=== PATIENT | female | born 1990 | race Caucasian/White ===

== ENCOUNTER 2020-05-25 03:06 | Inpatient (IN) | payer OTHER ==
[~2020-05-25] VITALS: Ht 177.8 cm; Wt 87.5 kg
--- NOTE | 2020-05-25 07:12 | PR ---
[facility] [address] [facility] [place], [place] [address] Signed Progress Notes IP Datetime Report Generated by CPN: 05/25/2020 07:12 PROGRESS NOTES: [id number] Impression: Normal Progression of Labor Procedures: Artificial ROM Plan: Continue Present Management; Anticipate Vaginal Delivery VITAL SIGNS: [id number] Vital Signs: Reviewed; Within Normal Limits EXAM: [id number] Dilatation: 5.0 Effacement: 90 Station: -2 Contractions: every 2-4 minutes MEMBRANES: [id number] Membranes Status: Ruptured FETUS A: [id number] FHR Baseline: 140 Variability: Moderate 6-25bpm Accelerations: 15X15 Presentation: Vertex FETUS B: [id number] Signing Physician: Viviana Dang MD Copies: ~ *Electronically Signed* 05/25/20711 VIVIANA DANG MD PATIENT NAME: DANNY BARNES PROGRESS NOTE DATE OF : [birth year] PHYSICIAN: VIVIANA DANG MD RPT #: [id number] REPORT IS CONFIDENTIAL AND NOT TO BE RELEASED WITHOUT AUTHORIZATION
--- NOTE | 2020-05-25 09:09 | PR ---
[facility] [address] [facility] [place], [place] [address] Signed Progress Notes IP Datetime Report Generated by CPN: 05/25/2020 09:09 PROGRESS NOTES: [id number] Impression: Normal Progression of Labor Procedures: Artificial ROM Plan: Continue Present Management; Anticipate Vaginal Delivery VITAL SIGNS: [id number] Vital Signs: Reviewed; Within Normal Limits EXAM: [id number] Dilatation: 9.5 Effacement: 95 Station: 1 Contractions: every 2-4 minutes MEMBRANES: [id number] Membranes Status: Ruptured Comments: Comfortable with Epidural, but feeling pressure. Will start pushing. FETUS A: [id number] FHR Baseline: 140 Variability: Moderate 6-25bpm Accelerations: 15X15 Presentation: Vertex FETUS B: [id number] Signing Physician: Viviana Dang MD Copies: ~ *Electronically Signed* 05/25/20908 VIVIANA DANG MD PATIENT NAME: DANNY BARNES PROGRESS NOTE DATE OF : [birth year] PHYSICIAN: VIVIANA DANG MD RPT #: [id number] REPORT IS CONFIDENTIAL AND NOT TO BE RELEASED WITHOUT AUTHORIZATION
--- NOTE | 2020-05-25 09:51 | PR ---
[facility] [address] [facility] [place] [address] Signed Progress Notes IP Datetime Report Generated by CPN: 05/25/2020 09:50 PROGRESS NOTES: [id number] Impression: Normal Progression of Labor Procedures: Artificial ROM Plan: Continue Present Management VITAL SIGNS: [id number] Vital Signs: Reviewed; Within Normal Limits EXAM: [id number] Dilatation: 10.0 Effacement: 100 Station: 1 Contractions: every 2-4 minutes MEMBRANES: [id number] Membranes Status: Ruptured Comments: Pushing well, but decles with contractions; will try pushing on side. Prominent coccyx noted FETUS A: [id number] FHR Baseline: 140 Variability: Moderate 6-25bpm Accelerations: 15X15 Presentation: Vertex FETUS B: [id number] Signing Physician: Viviana Dang MD Copies: ~ *Electronically Signed* 05/25/20 0950 VIVIANA DANG MD PATIENT NAME: DANNY BARNES PROGRESS NOTE DATE OF : [birth year] PHYSICIAN: VIVIANA DANG MD RPT #: [id number] REPORT IS CONFIDENTIAL AND NOT TO BE RELEASED WITHOUT AUTHORIZATION
--- NOTE | 2020-05-25 11:12 | PR ---
[facility] [address] [facility] [place], [place] [address] Signed Progress Notes IP Datetime Report Generated by CPN: 05/25/2020 11:12 PROGRESS NOTES: [id number] Impression: Arrest of Dilatation/Descent Procedures: Artificial ROM Plan: Deliver- Section Informed Consent Obtain: Section Delivery VITAL SIGNS: [id number] Vital Signs: Reviewed; Within Normal Limits EXAM: [id number] Dilatation: 10.0 Effacement: 100 Station: 1 Contractions: every 2-4 minutes MEMBRANES: [id number] Membranes Status: Ruptured Comments: Pushing well, but no change in past 45 minutes, with prominent coccyx seems to be keeping head from descending any further. Recommend C/S; discussed procedure, risks, benefits. Questions answered. Consent signed. 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
--- NOTE | 2020-05-25 13:00 | NUR ---
05/25/20 1300 [place],Daiana Vasquez 1235: PATIENT AWAKE AND ALERT. DENIES PAIN. C/O SLIGHT NAUSEA. 1255: PATIENT STATES NAUSEA GONE. C/O SLIGHT DISCOMFORT WITH FUNDAL CHECKS. OTHERWISE DENIES PAIN. BABY SKIN TO SKIN .
--- NOTE | 2020-05-26 12:44 | PR ---
[facility] [address] [address] Signed PP Progress Notes Datetime Report Generated by CPN: 05/26/2020 12:44 SUBJECTIVE: [id number] Pain: Within Normal Limits Nausea/Vomiting: Denies Vital Signs: [id number] Vital Signs: Reviewed; Within Normal Limits Notable Details: PP HGb/HCt = 10.1/29.2 Abdomen/Uterus: Normal Lochia: Normal Extremities: Normal Incision: Normal IMPRESSION/PLAN/PROCEDURES: [id number] Impression: Normal Progression Plan: Continue Present Management Procedures: None Progress Notes: Doing well, without complaint, tolerating food well, voiding without difficulty. Signing Physician: Viviana Dang MD Copies: ~ *Electronically Signed* 05/26/20 1244 VIVIANA DANG MD PATIENT NAME: DANNY BARNES PROGRESS NOTE DATE OF : [birth year] PHYSICIAN: VIVIANA DANG MD RPT #: [id number] REPORT IS CONFIDENTIAL AND NOT TO BE RELEASED WITHOUT AUTHORIZATION
--- NOTE | 2020-05-26 13:01 | OR ---
[facility] [address] [place], [place] [address] Signed DATE OF OPERATION: 05/25/2020 SURGEON: Brad Griffin MD PREOPERATIVE DIAGNOSES: 1. Failure to descend. 2. Non-reassuring heart rate tracing. POSTOPERATIVE DIAGNOSES: 1. Failure to descend. 2. Non-reassuring heart rate tracing. PROCEDURE: Primary low transverse segment section, delivery of live male . [employer] FORMER BRACE END: Anupam Mcarthur D.O. ANESTHESIA: Spinal. ESTIMATED BLOOD LOSS: 500 mL. COMPLICATIONS: None. DRAINS: Mercedes to bladder. FINDINGS: Live male infant, Apgars 8 and 9. Weight 7 pounds 14 ounces. Normal uterus. Normal tubes and ovaries bilateral. The infant was noted to be wedged very tightly in the pelvis. There was also light meconium. DESCRIPTION OF PROCEDURE: The patient was brought to the operating room, placed in supine position. After adequate spinal anesthesia was obtained, she was prepped and draped in the usual sterile fashion. The patient already had Mercedes catheter in the bladder. Pfannenstiel skin incision was made with a scalpel extended through the subcutaneous tissue with the Bovie Electronically Signed By: BRAD GRIFFIN MD 05/26/20 1301 PATIENT NAME: DANNY BARNES OPERATIVE REPORT DATE OF : [birth year] REPORT #: [id number] PHYSICIAN: BRAD GRIFFIN MD PCP: BRAD GRIFFIN MD REPORT IS CONFIDENTIAL AND NOT TO BE RELEASED WITHOUT AUTHORIZATION [facility] [address] [place], [place] [address] Signed and scalpel. The fascia was nicked with scalpel and extended in transverse fashion using curved scissors. The underlying abdominal musculature was bluntly sharply from the fascia above and below the incision. The abdominal musculature was bluntly along the midline. The peritoneum was grasped with hemostats, elevated, nicked with curved scissors and extended in a vertical fashion using curved scissors. The Chris self-retaining retractor was then inserted into the incision and tightened in place. The lower uterine segment was identified and the lower uterine segment carefully nicked with the scalpel just above the area of the bladder flap reflection. Finger dissection was then used to extend the incision in transverse fashion. The infant was noted to be in the vertex ROP presentation and the infant's head was wedged tightly in the pelvis. Hand was placed in the pelvis around the head and Dr. Najera with sterile glove and gently pushed baby up from the vagina into the pelvis, so that the vertex could be grasped and brought up to the incision. The head was flexed and then brought out of the incision. The rest of the was then easily delivered from the incision. The cord was doubly clamped and cut and passed off table in good condition to awaiting nurse. Cord gases were obtained and then the placenta manually removed. Uterine cavity was explored to lap pad to remove any retained membranes. An angle stitch incision was noted to be extended laterally to the edge, but the angle could be identified, so an angle stitch of 0-Monocryl was placed on the right side and the left side starting at the angle. A running locking stitch of 0-Monocryl starting at the angle was used to close the incision. A second running stitch of 0-Monocryl was used to imbricate the first layer. There was small amount of bleeding in one small area in the midline, which was controlled with a wzyncp-kb-[id number] stitch of 0-Monocryl and the right angle still had some bleeding, so fingers were placed behind the broad ligament to protect any other pelvic structure and to verify placement of the stitch and three jaxect-rz-lrkiz stitches of 0-Monocryl were placed at this angle before good hemostasis was obtained. At this point, the entire pelvis was irrigated, suctioned, examined and any bleeding spots cauterized with the Bovie. When good hemostasis was obtained, the Chris self-retaining retractor was removed. There was noted to be a small omental adhesion to the right anterior abdominal wall just above the level of the umbilicus. This was clamped with a Fern clamp, cut, and then the pedicle tied with a free tie of 2-0 chromic suture. Good hemostasis was noted at both sides of this dissection. A sheet of ACell was then placed over the lower uterine segment to help with healing and the anterior wall peritoneum closed using running stitch of 2-0 Vicryl suture. The abdominal musculature was reapproximated using interrupted stitches of 0-Vicryl suture. The abdominal wall incision was irrigated, suctioned, and examined, any bleeding spots cauterized with the Bovie. Powdered ACell sprinkled over the abdominal musculature to help with healing and then the fascia closed using two running stitches of 0-Vicryl suture meeting in the midline. Subcutaneous tissue was irrigated, suctioned, and examined, any bleeding spots cauterized with the Bovie. Subcutaneous tissue was closed using interrupted stitches of 3-0 Vicryl suture and the skin reapproximated using skin clips. The patient tolerated the procedure well went to Electronically Signed By: BRAD GRIFFIN MD 05/26/20 3662 PATIENT NAME: DANNY BARNES OPERATIVE REPORT DATE OF : [birth year] REPORT #: [id number] PHYSICIAN: BRAD GRIFFIN MD PCP: BRAD GRIFFIN MD REPORT IS CONFIDENTIAL AND NOT TO BE RELEASED WITHOUT AUTHORIZATION [address] [place], [place] [address] Signed recovery room in good condition. Sponge, needle, and instrument count were correct at the end of the procedure. The blood for cord gas was sent to the lab. The patient tolerated the procedure well and went to the recovery room in good condition. Brad Griffin MD MJB/MODL /[id number] Copies: ~ Electronically Signed By: BRAD GRIFFIN MD 05/26/20 1301 PATIENT NAME: DANNY BARNES OPERATIVE REPORT DATE OF : [birth year] REPORT #: [id number] PHYSICIAN: BRAD GRIFFIN MD PCP: BRAD GRIFFIN MD REPORT IS CONFIDENTIAL AND NOT TO BE RELEASED WITHOUT AUTHORIZATION
== END 2020-05-27 13:05 | disposition home or self-care (01) | DRG 788 ==
LOC: FBCO 03:06 → FBC 04:13
PROVIDERS: ADMIT General Practice; ATTEND General Practice
PROC: 10907ZC Drainage of Amniotic Fluid, Therapeutic from Products of Conception, Via Natural or Artificial Opening (ICD-10-PCS; 2020-05-25)
PROC: 00HU33Z Insertion of Infusion Device into Spinal Canal, Percutaneous Approach (ICD-10-PCS; 2020-05-25)
PROC: 3E0R3BZ Introduction of Anesthetic Agent into Spinal Canal, Percutaneous Approach (ICD-10-PCS; 2020-05-25)
PROC: 10D00Z1 Extraction of Products of Conception, Low, Open Approach (ICD-10-PCS; principal; 2020-05-25 11:16)
DX: O32.4XX0 Maternal care for high head at term, not applicable or unspecified (principal); Z3A.40 40 weeks gestation of pregnancy; Z37.0 Single live birth; O76 Abnormality in fetal heart rate and rhythm complicating labor and delivery; O77.0 Labor and delivery complicated by meconium in amniotic fluid; Z87.442 Personal history of urinary calculi
CPT/HCPCS: 01960; 01961; 36415; 82803; 85027; A9270; J0690; J1885; J2001; J2274; J2405; J2550; J2590; J7121